=== PATIENT | male | born 1945 | race Hispanic/Latino ===

== ENCOUNTER → 2019-04-26 | Outpatient (CLI) | payer OTHER ==
[~2019-04-26] MED LIST: AEC81 PO; LISI10TA7 PO; METF-444 PO; METOPROLOL PO; SIMV-43 PO
== END | disposition home or self-care (01) ==
LOC: SHCH 09:44
PROVIDERS: ATTEND Internal Medicine Cardiovascular Disease
DX: I20.9 Angina pectoris, unspecified (principal); R06.09 Other forms of dyspnea
CPT/HCPCS: 93306

== ENCOUNTER → 2019-06-25 | Outpatient (CLI) | payer OTHER | END | disposition home or self-care (01) | LOC: RAH 07:53 | PROVIDERS: ATTEND Orthopaedic Surgery | DX: M75.112 Incomplete rotator cuff tear or rupture of left shoulder, not specified as traumatic (principal); M19.012 Primary osteoarthritis, left shoulder | CPT/HCPCS: 73221 ==

== ENCOUNTER → 2020-08-26 | Outpatient (CLI) | payer OTHER ==
[~2020-08-26] MED LIST changes: +LISI10TA24 PO; -LISI10TA7 PO
== END | disposition home or self-care (01) ==
LOC: SHCH 08:02
PROVIDERS: ATTEND Internal Medicine Cardiovascular Disease
DX: I73.9 Peripheral vascular disease, unspecified (principal)
CPT/HCPCS: 93978

== ENCOUNTER → 2022-11-21 | Outpatient (CLI) | payer OTHER ==
[~2022-11-21] MED LIST changes: +REGADENOSON 0.4 MG/5 ML PF SYG IVP ONE
== END | disposition home or self-care (01) ==
LOC: SHCH 07:43
PROVIDERS: ATTEND Internal Medicine Cardiovascular Disease
DX: R94.39 Abnormal result of other cardiovascular function study (principal); I25.10 Atherosclerotic heart disease of native coronary artery without angina pectoris; I11.9 Hypertensive heart disease without heart failure; I25.2 Old myocardial infarction; E78.5 Hyperlipidemia, unspecified; F17.210 Nicotine dependence, cigarettes, uncomplicated; Z95.5 Presence of coronary angioplasty implant and graft
CPT/HCPCS: 78452; 93017; J2785; A9500 ×2; 96374

== ENCOUNTER 2024-05-10 20:27 | Emergency (ER) | payer OTHER ==
[~2024-05-10] VITALS: Ht 177.8 cm; Wt 75.3 kg
[~2024-05-10 20:27] MED LIST changes: -REGADENOSON 0.4 MG/5 ML PF SYG IVP ONE
[2024-05-10 21:06] LABS: BASOPHILS # (AUTO) 0.06 K/uL (0.00-0.20); BASOPHILS % (AUTO) 0.5 % (0.0-5.0); EOSINOPHILS # (AUTO) 0.14 K/uL (0.00-0.70); EOSINOPHILS % (AUTO) 1.1 % (0.0-8.0); HEMATOCRIT 45.4 % (42-54); IMMATURE GRANULOCYTE ABSOLUTE 0.07 K/uL (0-1); LYMPHOCYTES # (AUTO) 1.5 K/uL (1.0-4.8); LYMPHOCYTES % (AUTO) 11.4 % (21.0-51.0); MEAN CORPUSCULAR HEMOGLOBIN 30.1 pg (27.0-33.0); MEAN CORPUSCULAR HGB CONC 33.3 g/dL (32.0-36.0); MEAN CORPUSCULAR VOLUME 90.4 fL (79-99); MONOCYTES # (AUTO) 0.8 K/uL (0.1-1.0); MONOCYTES % (AUTO) 6.2 % (3.0-13.0); NEUTROPHILS # (AUTO) 10.7 K/uL (1.8-7.7); NEUTROPHILS % (AUTO) 80.3 % (40.0-77.0); PLATELET COUNT (AUTO) 214 K/uL (130-400); RED BLOOD CELL COUNT(AUTO) 5.02 MIL/uL (4.50-6.20); RED CELL DISTRIBUTION WIDTH 13.8 % (11.0-15.5); WHITE BLOOD COUNT (AUTO) 13.3 K/uL (4.8-10.8)
--- NOTE | 2024-05-10 21:11 | ERN ---
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 Patient states at this time the chest pain has resolved. And states now he has pain to the right upper quadrant area but states his pain has been there for two months. States he has started getting nauseated today, no vomiting or diarrhea. Allergies: Coded Allergies: No Known Drug Allergies (Verified Allergy, Unknown, 10/29/14) Home Meds Reported Medications [Metoprolol] No Conflict Check, 12.5 MG PO BID 10/29/14 Metformin HCl (Metformin HCl) 500 Mg Tablet, 500 MG PO PM, TAB 10/29/14 Lisinopril (Lisinopril) 10 Mg Tablet, 10 MG PO AM, TAB 10/29/14 Simvastatin (Simvastatin) 20 Mg Tablet, 20 MG PO HS, TAB 10/29/14 Aspirin (ASPIRIN 81 MG ECTAB) 81 Mg Ectab, 81 MG PO DAILY, TAB.EC 10/29/14 Past Medical History Past Medical History: Diabetes-Type II, High Cholesterol, Heart Disease, Hypertension, AL Surgical History: Other Surgical History Other: CARDIAC STENTS Review of System Dictation Constitutional: Negative for fever,chills, and weight loss Eyes: Negative for injury, pain,redness, and discharge ENT: Negative for injury,pain or swelling Cardiovascular: Positive for chest pain, no palpitations, and no edema Respiratory: Negative for shortness of breath, cough, and wheezing, Abdomen/GI: Negative for abdominal pain, nausea, vomiting, diarrhea, and constipation Back: Negative for injury and pain : Negative for injury, bleeding and discharge MS/Extremity: Negative for injury and deformity Skin: Negative for rash, and discoloration Neuro: Negative for headache, weakness, numbness, tingling, and seizure Psych: Negative for suicide ideation, homicidal ideation, and hallucinations Review of Systems: was completed Initial Vital Sign VS Vital Signs Date Time Temp Pulse Resp B/P (MAP) Pulse Ox O2 Delivery O2 Flow Rate FiO2 05/10/24 20:28 98.6 64 16 134/78 98 Room Air* 0 21 Physical Exam Dictation General: awake, alert, NAD Head/Face: Normocephalic, atraumatic Eyes: PERRL, EOMI, vision at baseline ENT: oral cavity clear, TMs clear, no signs of infection Neck: Trachea midline, supple, no nuchal rigidity Cardiovascular: RRR, normal S1/S2, No MRGs, no JVD Respiratory: CTAB, no respiratory distress, No rales or wheezes Abdomen: Soft, non-tender, non-distended, normal bowel sounds, no guarding or rebound. Skin: Warm, dry, normal turgor, no rash MS/Extremity: Pulses equal, no cyanosis, neurovascular intact, FROM Neuro: COAx4, GCS 15, strength 5/5, CN 2-12 intact, normal cerebellar exam, normal gait, Psych: Normal behavior, mood, and affect normal Results (Laboratory/Radiology) Laboratory/Radiology Laboratory Tests Test 05/10/24 20:55 05/10/24 21:21 05/10/24 21:56 05/10/24 23:11 White Blood Count 13.3 K/uL (4.8-10.8) H Red Blood Count 5.02 MIL/uL (4.50-6.20) Hemoglobin 15.1 g/dL (14.0-18.0) Hematocrit 45.4 % (42-54) Mean Corpuscular Volume 90.4 fL (79-99) Mean Corpuscular Hemoglobin 30.1 pg (27.0-33.0) Mean Corpuscular Hemoglobin Concent 33.3 g/dL (32.0-36.0) Red Cell Distribution Width 13.8 % (11.0-15.5) Platelet Count 214 K/uL (130-400) Mean Platelet Volume 9.7 fL (7.5-10.5) Immature Granulocyte % (Auto) 0.5 % (0-1) Neutrophils (%) (Auto) 80.3 % (40.0-77.0) H Lymphocytes (%) (Auto) 11.4 % (21.0-51.0) L Monocytes (%) (Auto) 6.2 % (3.0-13.0) Eosinophils (%) (Auto) 1.1 % (0.0-8.0) Basophils (%) (Auto) 0.5 % (0.0-5.0) Neutrophils # (Auto) 10.7 K/uL (1.8-7.7) H Lymphocytes # (Auto) 1.5 K/uL (1.0-4.8) Monocytes # (Auto) 0.8 K/uL (0.1-1.0) Eosinophils # (Auto) 0.14 K/uL (0.00-0.70) Basophils # (Auto) 0.06 K/uL (0.00-0.20) Absolute Immature Granulocyte (auto 0.07 K/uL (0-1) Nucleated Red Blood Cells 0.0 % (0.0-0.19) Sodium Level 134 mmol/L (136-145) L Potassium Level 4.0 mmol/L (3.5-5.1) Chloride Level 101 mmol/L (101-111) Carbon Dioxide Level 29 mmol/L (21-32) Blood Urea Nitrogen 22 mg/dL (7-18) H Creatinine 1.4 mg/dL (0.5-1.3) H Glomerular Filtration Rate Calc 51 mL/min (>90) Random Glucose 118 mg/dL (70-105) H Total Calcium 9.4 mg/dL (8.5-10.1) Total Creatine Kinase 79 U/L (21-232) B-Type Natriuretic Peptide 122 pg/mL (0-100) H Troponin I < 0.05 ng/mL (0.00-0.05) Urine Color LIGHT-YELLOW (YELLOW) Urine Appearance CLEAR (CLEAR) Urine pH 5.5 (5.0-8.0) Urine Specific [place] 1.022 (1.001-1.031) Urine Protein 10 mg/dL (NEGATIVE) H Urine Glucose (UA) >=1000 mg/dL (NEGATIVE) H Urine Ketones NEGATIVE mg/dL (NEGATIVE) Urine Occult Blood NEGATIVE (NEGATIVE) Urine Nitrate NEGATIVE (NEGATIVE) Urine Bilirubin NEGATIVE mg/dL (NEGATIVE) Urine Urobilinogen 0.2 mg/dL (0.2-1.0) Urine Leukocyte Esterase NEGATIVE Tani/uL Urine RBC 2-5 /HPF (0-1) H Urine WBC 0-1 /HPF (0-1) Urine Bacteria None /HPF (None Seen) Total Bilirubin 0.8 mg/dL (0.2-1.0) Direct Bilirubin 0.2 mg/dL (0.0-0.3) Aspartate Amino Transf (AST/SGOT) 14 U/L (10-37) Alanine Aminotransferase (ALT/SGPT) 17 U/L (12-78) Alkaline Phosphatase 70 U/L (50-136) Troponin I High Sensitivity 14 ng/L (4-75) Total Protein 7.6 g/dL (6.0-8.3) Albumin 3.6 g/dL (3.5-5.0) Lipase 145 U/L (16-77) H Labs Reviewed?: Yes EKG Comment: Date:05/10/24 Time:2033 Ventricular rate:61 [place] interval:167 QRS duration:-39 QT/QTc:430/429 EKG interpretation: Sinus rhythm, atrial premature complex, incomplete RBBB and LAFB Reviewed by ED Attending no STEMI interpreted by ER MD X-RAY Comment: [place] [address] [place] [address] IMAGING REPORT Signed PATIENT: LISHA BOWEN MR#: [id number] : 1945 SEX: M AGE: 79 LOCATION: [facility] ORDER 36 STATUS: REG ER REPORT#: [id number] SERVICE 36 REASON: CHEST PAIN ORDERING PHYSICIAN: MIREYA RIVERA MD PROCEDURE: CXR1VW - CHEST 1VW Exam Type: CHEST 1VW Clinical Information: CHEST PAIN Comparison: None Findings: The lungs are clear of infiltrates. The heart is normal in size. The bony and soft tissue structures of the chest are unremarkable. Impression: Clear lungs. DICTATED BY: CALILE RAUSCH MD DATE: 05/10/242123 ELECTRONICALLY SIGNED BY: CALLIE RAUSCH MD DATE: 05/10/242127 ED Course ED Course Orders Procedure Category Date Status Time 12 Lead Ekg Tracing- EKG 05/10/24 Logged Technical 20:36 Vital Signs Per CPOE 05/10/24 Transmitted Routine 20:37 B-Type Natriuretic LAB 05/10/24 Complete Peptide 20:37 Chest 1vw RAD 05/10/24 Resulted 20:37 Oxygen By Nc/Pulse Ox CPOE 05/10/24 Transmitted 20:37 Maintain Iv CPOE 05/10/24 Transmitted 20:37 Iv Insertion CPOE 05/10/24 Transmitted 20:37 Cardiac Monitoring CPOE 05/10/24 Transmitted 20:37 Pulse Oximetry With CPOE 05/10/24 Transmitted Vs And Prn 20:37 Cbc With Differential LAB 05/10/24 Complete 20:37 Activity: Br W/Brp CPOE 05/10/24 Transmitted With Assist 20:37 Creatine Kinase, Total LAB 05/10/24 Complete 20:37 Troponin Poc Order LAB 05/10/24 Complete Only 20:37 Bedside Troponin-I LAB.ER 05/10/24 In Process (Poc) 20:37 Basic Metabolic Panel LAB 05/10/24 Complete 20:37 Urinalysis LAB 05/10/24 Complete W/Microscopic 21:56 Lipase LAB 05/10/24 Complete 23:01 Hepatic Function Panel LAB 05/10/24 Complete 23:01 Troponin I High LAB 05/10/24 Complete Sensitivity 23:01 Vital Signs Date Time Temp Pulse Resp B/P (MAP) Pulse Ox O2 Delivery O2 Flow Rate FiO2 05/10/24 21:50 62 18 132/70 98 Room Air* 0 21 05/10/24 20:30 98.6 64 16 134/78 98 Room Air 0 05/10/24 20:28 98.6 64 16 134/78 98 Room Air* 0 21 HEART Score Response (Comments) Value History: Low suspicion (0) 0 EKG: Normal 0 Age: > 65yrs (+2) 2 Risk Factors: 3+ risk factors (+2) 2 Initial Troponin: Normal limit (0) 0 Total 4 Medical Decision Making MDM MDM: 71-year-old male with a history of hypertension, cholesterol, and two heart stents coming in with complaints of right-sided chest pain that 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 Patient states at this time the chest pain has resolved. And states now he has pain to the right upper quadrant area but states his pain has been there for two months. States he has started getting nauseated today, no vomiting or diarrhea.CBC shows mild leukocytosis of 13, no anemia, no thrombocytopenia. Chemistry shows hyponatr emia at 1:34 a.m., mild elevation of creatinine periods could be related to dehydration could also explain the leukocytosis. No transaminitis. Lipase is 145, however patient is not having any vomiting, and states he does not have pain at this time. Lipase is not 3 times the normal limit therefore low suspicion for pancreatitis. Troponin x2 negative. EKGs did not show any ST el evations or dysrhythmias. Heart score of four, moderate risk. Chest x-ray shows no pulmonary infectious process. Discussed findings with patient, offered admission for observation due to he is comorbidities and heart score, however patient refused to be admitted. Patient states he will just come back to the ER if the pain returns. Discussed red flag signs with patient on when to return back to the ER. Patient verbalized understanding, answered all questions. Differential diagnosis: AL, costochondritis, chest wall pain Rationale: Tests considered and ordered secondary to shared decision making include: Previous outside records reviewed: Old ER visits. Risk of complication and/or morbidity or mortality of patient management: None Medications-Per medication reconciliation Need for hospitalization: Patient does not meet criteria for hospitalization. Need for emergency major/minor surgery: No There are no social concerns with this patient. Prescription drug management Prescriptions will include symptomatic care Patient's prior external medical records from other ER visits were reviewed by me as indicated. Prior testing and results from previous visits were reviewed. Prior tests were taken into account with medical decision making and resource utilization, independent historian/historians were used to obtain complete medical history. I independently interpreted the test that were performed, results were reviewed by me and considered findings on radiology if ordered. Medical management and examination interpretation discussions were had by me with other qualified healthcare professionals as indicated for the patient's care. DX & DISP Disposition: Discharge Departure Impression: Primary Impression: Chest pain Additional Impressions: Dehydration, Elevated lipase Condition: Stable Additional Instructions: Please follow up with your primary doctor in 1-2 days. Please return to the emergency room if your chest pain returns. Return if you have any fever, nausea, vomiting or diarrhea. Referrals: CHRISTIANO CARRILLO (PCP) Time of Disposition: 23:51 I have reviewed the case, and I agree with, Diagnosis and Plan CAROLYN GRIJALVA NP May 10, 2024 21:11
[2024-05-10 21:21] LABS: CREATININE 1.4 mg/dL (0.5-1.3)
--- NOTE | 2024-05-10 21:28 | HMCIMG ---
Exam Type: CHEST 1VW Clinical Information: CHEST PAIN Comparison: None Findings: The lungs are clear of infiltrates. The heart is normal in size. The bony and soft tissue structures of the chest are unremarkable. Impression: Clear lungs.
[2024-05-10 22:20] LABS: APPEARANCE,URINE CLEAR (CLEAR); BILIRUBIN,URINE NEGATIVE (NEGATIVE); COLOR,URINE LIGHT-YELLOW (YELLOW); GLUCOSE, URINE (UA) >=1000 mg/dL (NEGATIVE); KETONES,URINE NEGATIVE (NEGATIVE); LEUKOCYTE ESTERASE ,URINE NEGATIVE Leu/uL (NEGATIVE); MUCUS,URINE RARE LPF (None Seen); NITRATE,URINE NEGATIVE (NEGATIVE); OCCULT BLOOD,URINE NEGATIVE (NEGATIVE); PH,URINE 5.5 (5.0-8.0); PROTEIN,URINE 10 mg/dL (NEGATIVE); UROBILINOGEN,URINE 0.2 mg/dL (0.2-1.0); WBC,URINE 0-1 /HPF (0-1)
[2024-05-10 22:30] LABS: B-TYPE NATRIURETIC PEPTIDE 122 pg/mL (0-100)
[2024-05-10 23:35] LABS: ALBUMIN 3.6 g/dL (3.5-5.0); BILIRUBIN,DIRECT 0.2 mg/dL (0.0-0.3); BILIRUBIN,TOTAL 0.8 mg/dL (0.2-1.0); TOTAL PROTEIN, SERUM 7.6 g/dL (6.0-8.3)
[2024-05-11 00:06] VITALS: BP 133/74; PULSE 64; RESP 18; TEMP 98.2; O2SAT 98
--- NOTE | 2024-05-11 05:10 | EKG ---
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 : 1945 Requested By: MIREYA RIVERA Order Number: [id number] Reading MD: Dieter Arguello Measurements Intervals [place] Rate: 61 P: 3 [place]: 167 QRS: -39 QRSD: 104 T: -21 QT: 430 QTc: 429 Interpretive Statements Sinus rhythm Atrial premature complex Incomplete RBBB and LAFB Compared to ECG 10/29/2014 13:27:43 Atrial premature complex(es) now present Left anterior fascicular block now present Right bundle-branch block now present Left-axis deviation no longer present Electronically Signed On 05-12-2024 21:30:39 PIPE RECOVERY SPECIALIST by Dieter Arguello Please click the below link to view image of tracing.
== END 2024-05-11 00:11 | disposition home or self-care (01) ==
LOC: EDH 20:27
DX: R07.89 Other chest pain (principal); E86.0 Dehydration; R74.01 Elevation of levels of liver transaminase levels; E11.9 Type 2 diabetes mellitus without complications; E78.00 Pure hypercholesterolemia, unspecified; I11.9 Hypertensive heart disease without heart failure; Z79.82 Long term (current) use of aspirin; Z95.5 Presence of coronary angioplasty implant and graft; Z98.890 Other specified postprocedural states
CPT/HCPCS: 36415; 71045; 80048; 80076; 81001; 82550; 83690; 83880; 84484; 85025; 93005; 99285

== ENCOUNTER → 2024-08-30 | Outpatient (CLI) | payer OTHER ==
[~2024-08-30] VITALS: Ht 177.8 cm; Wt 75.8 kg
[~2024-08-30] MED LIST changes: +CETI10TA57 PO; +DAPA10TA PO; +METO-408 PO; +METO25TA6 PO; +SIMV-46 PO
[2024-08-30 12:31] LABS: BASOPHILS # (AUTO) 0.06 K/uL (0.00-0.20); BASOPHILS % (AUTO) 0.6 % (0.0-5.0); EOSINOPHILS # (AUTO) 0.43 K/uL (0.00-0.70); EOSINOPHILS % (AUTO) 4.6 % (0.0-8.0); HEMATOCRIT 49.5 % (42-54); IMMATURE GRANULOCYTE ABSOLUTE 0.03 K/uL (0-1); LYMPHOCYTES # (AUTO) 2.2 K/uL (1.0-4.8); LYMPHOCYTES % (AUTO) 23.5 % (21.0-51.0); MEAN CORPUSCULAR HEMOGLOBIN 29.5 pg (27.0-33.0); MEAN CORPUSCULAR HGB CONC 32.3 g/dL (32.0-36.0); MEAN CORPUSCULAR VOLUME 91.3 fL (79-99); MONOCYTES # (AUTO) 0.7 K/uL (0.1-1.0); NEUTROPHILS # (AUTO) 5.9 K/uL (1.8-7.7); PLATELET COUNT (AUTO) 191 K/uL (130-400); RED BLOOD CELL COUNT(AUTO) 5.42 MIL/uL (4.50-6.20); RED CELL DISTRIBUTION WIDTH 14.2 % (11.0-15.5); WHITE BLOOD COUNT (AUTO) 9.3 K/uL (4.8-10.8)
[2024-08-30 12:40] LABS: CREATININE 1.6 mg/dL (0.5-1.3); POTASSIUM 4.8 mmol/L (3.5-5.1)
[2024-08-30 12:46] LABS: INR 1.17 (0.85-1.15); PROTHROMBIN TIME 12.2 SEC (9.6-11.6)
[2024-08-30 12:47] LABS: PARTIAL THROMBOPLASTIN TIME 31.6 SEC (26.3-35.5)
[2024-08-30 13:26] VITALS: BP 140/75; PULSE 78; RESP 18; TEMP 97.6
--- NOTE | 2024-08-30 13:27 | NUR ---
RE: BLOOD THINNER NOTIFIED ZAHEER PLATT THAT PATIENT IS SCHEDULED FOR CARDIOVERSION FOR AFIB AND THE ONLY BLOOD THINNER HE IS TAKING IS ASPIRIN 81MG PO DAILY. PER ANASTASIA, PROCEDURE WILL BE CANCELED BECAUSE PATIENT NEEDS TO BE ON ELIQUIS PRESCRIBED.
== END | disposition home or self-care (01) ==
LOC: DAH 11:57 → EDSTATUS 09-03 12:00
PROVIDERS: ATTEND Internal Medicine Cardiovascular Disease
DX: I48.0 Paroxysmal atrial fibrillation (principal)
CPT/HCPCS: 36415; 80048; 85025; 85610; 85730

== ENCOUNTER 2024-09-25 06:20 | Day surgery (SDC) | payer OTHER ==
[2024-09-23 12:08] VITALS: BP 117/67; PULSE 61; RESP 18; TEMP 97.5
[2024-09-23 12:09] LABS: BASOPHILS # (AUTO) 0.06 K/uL (0.00-0.20); BASOPHILS % (AUTO) 0.7 % (0.0-5.0); EOSINOPHILS # (AUTO) 0.34 K/uL (0.00-0.70); HEMATOCRIT 50.8 % (42-54); IMMATURE GRANULOCYTE ABSOLUTE 0.04 K/uL (0-1); LYMPHOCYTES # (AUTO) 2.1 K/uL (1.0-4.8); LYMPHOCYTES % (AUTO) 24.7 % (21.0-51.0); MEAN CORPUSCULAR HEMOGLOBIN 29.7 pg (27.0-33.0); MEAN CORPUSCULAR HGB CONC 32.9 g/dL (32.0-36.0); MEAN CORPUSCULAR VOLUME 90.2 fL (79-99); MONOCYTES # (AUTO) 0.7 K/uL (0.1-1.0); MONOCYTES % (AUTO) 8.5 % (3.0-13.0); NEUTROPHILS # (AUTO) 5.3 K/uL (1.8-7.7); NEUTROPHILS % (AUTO) 61.6 % (40.0-77.0); PLATELET COUNT (AUTO) 201 K/uL (130-400); RED BLOOD CELL COUNT(AUTO) 5.63 MIL/uL (4.50-6.20); RED CELL DISTRIBUTION WIDTH 14.3 % (11.0-15.5); WHITE BLOOD COUNT (AUTO) 8.6 K/uL (4.8-10.8)
[2024-09-23 12:21] LABS: CREATININE 1.6 mg/dL (0.5-1.3); POTASSIUM 4.8 mmol/L (3.5-5.1)
[2024-09-23 12:33] LABS: INR 1.2 (0.85-1.15); PROTHROMBIN TIME 12.5 SEC (9.6-11.6)
[2024-09-23 12:35] LABS: PARTIAL THROMBOPLASTIN TIME 36.7 SEC (26.3-35.5)
[~2024-09-25] VITALS: Ht 177.8 cm; Wt 75.3 kg
[~2024-09-25 06:20] MED LIST changes: +APIX5TAB PO; -LISI10TA24 PO; -METF-444 PO; -METO25TA6 PO; -METOPROLOL PO; -SIMV-43 PO
[2024-09-25 06:35] VITALS: BP 123/78; PULSE 74; RESP 14; TEMP 97.9
--- NOTE | 2024-09-25 09:12 | NUR ---
PT SYNCHRONIZED CARDIOVERTED [address] AVINASH ARROYO PT TOLERATED WELL PT CONVERTED TO NSR
--- NOTE | 2024-09-25 09:15 | NUR ---
PT AWAKE SPEAKING WITH STAFF NAD VSS WILL CONTINUE TO MONITOR PT AT BEDSIDE SPEAKING WITH DR. DA SILVA
--- NOTE | 2024-09-25 09:18 | EKG ---
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 : 1945 Requested By: RUPINDER DA SILVA Order [facility]: [id number] Reading MD: Kristina Farias Measurements Intervals [place] Rate: 53 P: -14 NM: 172 QRS: -50 QRSD: 100 T: -81 QT: 444 QTc: 416 Interpretive Statements Sinus bradycardia Left axis deviation Incomplete right bundle branch block ST & T wave abnormality, consider inferior ischemia Compared to ECG 05/10/2024 20:34:18 Left-axis deviation now present ST (T wave) deviation now present Possible ischemia now present Sinus rhythm no longer present Atrial premature complex(es) no longer present Left anterior fascicular block no longer present Right bundle-branch block no longer present Electronically Signed On 09-25-2024 09:19:13 CDT by Kristina Farias Please click the below link to view image of tracing.
[2024-09-25] MEDS: MIDAZOLAM HCL 1 MG/ML 2ML VIAL IVP ONE (09:19)
[2024-09-25 09:20] VITALS: BP 125/81; PULSE 58; RESP 15; TEMP 97.4
[2024-09-25] MEDS: FENTanyl CITRate PF 50 MCG/1 ML 2ML VIAL IVP ONE (09:20)
[2024-09-25] MEDS: 0.9%NACL 1000ML 1,000 ML IV ONE (09:22)
--- NOTE | 2024-09-25 09:34 | PRN ---
Procedure Note INDICATION FOR PROCEDURE: Atrial fibrillation variable response Hypercoagulable state Acute on chronic diastolic congestive heart failure PROCEDURE: 1. Conscious sedation 2. Direct current cardioversion with synchronized electricity 120 joules x1 with shinto of sinus rhythm DATE OF PROCEDURE: September 25, 2024 CONSTRUCTION PLUMBER: Raymond Dykes MD, F.A.C.C. PROCEDURE NOTE: [] Patient was electively brought to [facility] patient and EKG upon arrival revealed still evidence of atrial fibrillation. Patient had defibrillator pads placed in requested position and once time-out was achieved he was given 2 mg of Versed and 50 mcg of fentanyl for conscious sedation. Once this was felt to be adequate sedation patient was given 120 joules of synchronized electricity for direct current cardioversion. This was successful and the patient converted back to a sinus rhythm. EKG confirmed findings. FINDINGS: [] Successful direct current cardioversion x1 with 120 joules synchronized e lectricity PLAN: [] Patient will continue Eliquis anticoagulation 5 mg twice daily for 4 weeks uninterrupted. Patient will continue Toprol-XL 25 mg daily Patient's other medications will be continued. RAYMOND DYKES MD September 25, 2024 09:34
[2024-09-25 09:35] VITALS: BP 118/79; PULSE 52; RESP 15
[2024-09-25 09:50] VITALS: BP 121/80; PULSE 54; RESP 14
[2024-09-25 10:05] VITALS: BP 114/70; PULSE 56; RESP 15
--- NOTE | 2024-09-25 11:20 | EKG ---
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
== END 2024-09-25 10:10 | disposition home or self-care (01) ==
LOC: DAH 06:20
PROVIDERS: ATTEND Internal Medicine Cardiovascular Disease
DX: I48.19 Other persistent atrial fibrillation (principal); I11.0 Hypertensive heart disease with heart failure; I50.33 Acute on chronic diastolic (congestive) heart failure; I25.10 Atherosclerotic heart disease of native coronary artery without angina pectoris; I25.2 Old myocardial infarction; I44.7 Left bundle-branch block, unspecified; I45.19 Other right bundle-branch block; I45.2 Bifascicular block; F17.210 Nicotine dependence, cigarettes, uncomplicated; Z95.5 Presence of coronary angioplasty implant and graft; Z96.652 Presence of left artificial knee joint; Z79.82 Long term (current) use of aspirin; Z79.899 Other long term (current) drug therapy
CPT/HCPCS: 80048; 85025; 85610; 85730; 36415; 92960; 93005 ×2; J3010; J7030; J2250; A4615; A4215; A4657; A4222; A4221; A4663; A4216; A4606; A4223 ×3; 99152; G0500

== ENCOUNTER 2024-11-06 09:09 | Day surgery (SDC) | payer OTHER ==
[2024-11-04 13:01] LABS: BASOPHILS # (AUTO) 0.05 K/uL (0.00-0.20); BASOPHILS % (AUTO) 0.5 % (0.0-5.0); EOSINOPHILS % (AUTO) 4.1 % (0.0-8.0); HEMATOCRIT 47.4 % (42-54); IMMATURE GRANULOCYTE ABSOLUTE 0.04 K/uL (0-1); LYMPHOCYTES % (AUTO) 20.8 % (21.0-51.0); MEAN CORPUSCULAR HEMOGLOBIN 29.7 pg (27.0-33.0); MEAN CORPUSCULAR HGB CONC 32.9 g/dL (32.0-36.0); MEAN CORPUSCULAR VOLUME 90.3 fL (79-99); MONOCYTES # (AUTO) 0.8 K/uL (0.1-1.0); MONOCYTES % (AUTO) 8.6 % (3.0-13.0); NEUTROPHILS # (AUTO) 6.4 K/uL (1.8-7.7); NEUTROPHILS % (AUTO) 65.6 % (40.0-77.0); PLATELET COUNT (AUTO) 204 K/uL (130-400); RED BLOOD CELL COUNT(AUTO) 5.25 MIL/uL (4.50-6.20); RED CELL DISTRIBUTION WIDTH 15.3 % (11.0-15.5); WHITE BLOOD COUNT (AUTO) 9.7 K/uL (4.8-10.8)
[2024-11-04 13:07] LABS: CREATININE 1.7 mg/dL (0.5-1.3)
[2024-11-04 13:09] LABS: INR 1.19 (0.85-1.15); PROTHROMBIN TIME 12.4 SEC (9.6-11.6)
[2024-11-04 13:25] VITALS: BP 147/90; PULSE 51; RESP 18; TEMP 97.6
[~2024-11-06] VITALS: Ht 177.8 cm; Wt 76.7 kg
[~2024-11-06 09:09] MED LIST changes: +AMIO200T73 PO
[2024-11-06 09:14] VITALS: BP 147/90; PULSE 79; RESP 16; TEMP 98.2
--- NOTE | 2024-11-06 10:34 | EKG ---
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 : 1945 Requested By: RUPINDER DA SILVA Order Number: [id number] Reading MD: Kristina Farias Measurements Intervals [place] Rate: 75 P: 0 CT: 0 QRS: -41 QRSD: 103 T: -14 QT: 412 QTc: 462 Interpretive Statements Atrial fibrillation Incomplete RBBB and LAFB Compared to ECG 09/25/2024 09:15:11 Left anterior fascicular block now present Right bundle-branch block now present Sinus bradycardia no longer present Left-axis deviation no longer present ST (T wave) deviation no longer present Possible ischemia no longer present Electronically Signed On 11-07-2024 15:05:58 CDT by rKistina Farias Please click the below link to view image of tracing.
[2024-11-06] MEDS: 0.9%NACL 1000ML 1,000 ML IV ONE (12:07)
[2024-11-06 13:10] VITALS: BP_SYST 147; BP_SYST 150; BP_DIAS 85; BP_DIAS 90; PULSE 48; PULSE 79; RESP 15; TEMP 98.4
[2024-11-06 13:25] VITALS: BP 121/72; PULSE 50; RESP 14
[2024-11-06 13:40] VITALS: BP 112/65; PULSE 50; RESP 16
[2024-11-06] MEDS: FENTanyl CITRate PF 50 MCG/1 ML 2ML VIAL IVP ONE (13:40)
[2024-11-06] MEDS: MIDAZOLAM HCL 1 MG/ML 2ML VIAL IVP ONE (13:41)
[2024-11-06 13:55] VITALS: BP 111/69; PULSE 61; RESP 15
--- NOTE | 2024-11-06 14:00 | NUR ---
BOTH PT AND GIVEN VERBAL AND WRITTEN DISCHARGE INSTRUCTIONS. IV REMOVED SITE ASYMPTOMATIC. PT TAKEN OUT VIA WHEELCHAIR DRIVING
--- NOTE | 2024-11-06 14:07 | PRN ---
Procedures: Conscious sedation Direct current cardioversion synchronized electricity initially at 120 joules and then repeated at 200 joules Indications: Hypercoagulable state Symptomatic atrial fibrillation Description: Patient had an EKG confirming AFib to persist. Patient was given a total of 2 mg of Versed and 50 mcg of fentanyl and once he was consciously sedated direct current synchronized cardioversion was performed at 120 joules and patient went into a sinus rhythm but within 30 seconds went back to AFib. We then repeated direct current cardioversion synchronized electricity of 200 joules was successful conversion back to sinus rhythm. Recommendations: Continue anticoagulation Continue amiodarone therapy Continue beta-jo-ann therapy Follow up with Dr. Dykes 2-4 weeks RUPINDER DYKES MD Nov 06, 2024 14:07
--- NOTE | 2024-11-07 07:32 | EKG ---
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 : 1945 Requested By: RUPINDER DA SILVA Order Number: [id number] Reading MD: Kristina Farias Measurements Intervals [place] Rate: 49 P: 2 [place]: 198 QRS: -37 QRSD: 103 T: -10 QT: 468 QTc: 421 Interpretive Statements Sinus bradycardia Inferior infarct, old Compared to ECG 11/06/2024 09:15:24 Myocardial infarct finding now present Atrial fibrillation no longer present Left anterior fascicular block no longer present Incomplete right bundle-branch block no longer present Right bundle-branch block no longer present Electronically Signed On 11-07-2024 15:06:14 CDT by Kristina Farias Please click the below link to view image of tracing.
== END 2024-11-06 14:15 | disposition home or self-care (01) ==
LOC: DAH 09:09
PROVIDERS: ATTEND Internal Medicine Cardiovascular Disease
DX: I48.0 Paroxysmal atrial fibrillation (principal); I25.10 Atherosclerotic heart disease of native coronary artery without angina pectoris; E78.5 Hyperlipidemia, unspecified; I25.2 Old myocardial infarction; F17.210 Nicotine dependence, cigarettes, uncomplicated; I11.9 Hypertensive heart disease without heart failure; I45.2 Bifascicular block; Z96.652 Presence of left artificial knee joint; Z95.5 Presence of coronary angioplasty implant and graft; Z79.01 Long term (current) use of anticoagulants; Z79.899 Other long term (current) drug therapy
CPT/HCPCS: 80048; 85025; 85610; 85730; 36415; 92960; 99152; 93005 ×2; J3010; J7030; J2250; A4615; A4215; A4657; A4222; A4221; A4663; A4216; A4606; A4223 ×3; G0500